=== PATIENT | male | born 1970 | race Caucasian/White ===

== ENCOUNTER 2019-08-27 13:23 | Emergency (ER) | payer BC ==
--- NOTE | 2019-08-27 13:44 | EDM.PDOC ---
ED HPI GENERAL MEDICAL PROBLEM - General Chief Complaint: Abdominal Pain Stated Complaint: ABD PAIN Time Seen by Provider: 08/27/19 13:42 Source of Information: Reports: Patient History Limitations: Reports: No Limitations - History of Present Illness INITIAL COMMENTS - FREE TEXT/NARRATIVE: 48-year-old male who reports onset of "upset stomach" beginning last night after eating supper. He reports he had mild pain at that time that seemed to come and go and he was awakened again at 3 AM with pain in his abdomen that was crampy type pain and this continued to come and go throughout the morning as he was driving to [place] from [place] and over the past 2 hours the pain has been continual with intermittent waves of extreme worsening in his pain. The pain is currently a 7/10 but has been a 10/10. It does not radiate. He has had nausea but no vomiting. He had a small bowel movement today that was nonbloody. He has been urinating normally. He has had no cough. No fevers. No sore throat. There are no other associated signs or symptoms. There are no other modifying factors. 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: Other (see below) (He did take some Pepto-Bismol this morning without relief.) ABDOMEN Pain Score (Numeric/FACES): 8 - Related Data Allergies Allergy/AdvReac Type Severity Reaction Status Date / Time No Known Allergies Allergy Verified 08/27/19 13:43 Home Meds: Home Meds Metoprolol Succinate 25 mg PO DAILY 08/27/19 [History] Spironolactone [Aldactone] 12.5 mg PO DAILY 08/27/19 [History] Topiramate 75 mg PO DAILY 08/27/19 [History] hydroCHLOROthiazide [Hydrochlorothiazide] 25 mg PO DAILY 08/27/19 [History] Past Medical History Cardiovascular History: Reports: Hypertension - Past Surgical History Other Surgical History Comment: No previous surgeries. Social & Family History - Tobacco Use Smoking Status *Q: Unknown Ever Smoked (Nonsmoker) - Alcohol Use Alcohol Use History: Yes Alcohol Use Frequency: Socially - Living Situation & Occupation Occupation: Employed (He works as an electrician helper. He is from the [place] area and is working in [employer]) ED ROS GENERAL - Review of Systems Review Of Systems: See Below Constitutional: Reports: Diaphoresis HEENT: Reports: No Symptoms Respiratory: Reports: No Symptoms Cardiovascular: Reports: No Symptoms Endocrine: Reports: No Symptoms GI/Abdominal: Reports: Abdominal Pain, Nausea : Reports: No Symptoms Musculoskeletal: Reports: No Symptoms Skin: Reports: Diaphoresis Neurological: Reports: No Symptoms Hematologic/Lymphatic: Reports: No Symptoms Immunologic: Reports: No Symptoms ED EXAM, GI/ABD - Physical Exam Exam: See Below Exam Limited By: No Limitations General Appearance: Alert, WD/WN, Moderate Distress Eyes: Bilateral: Normal Appearance, EOMI Ears: Normal External Exam, Hearing Grossly Normal Nose: Normal Inspection, Normal Mucosa, No Blood Throat/Mouth: Normal Inspection, Normal Oropharynx, Normal Voice, No Airway Compromise Head: Atraumatic, Normocephalic Neck: Normal Inspection, Supple, Non-Tender, Full Range of Motion Respiratory/Chest: No Respiratory Distress, Lungs Clear, Normal Breath Sounds, No Accessory Muscle Use, Chest Non-Tender Cardiovascular: Normal Peripheral Pulses, Regular Rate, Rhythm, No Murmur GI/Abdominal Exam: Normal Bowel Sounds, Soft, No Mass, Pelvis Stable, Tender ( In epigastrium and right upper quadrant) (Male) Exam: No Hernia Back Exam: Normal Inspection, Full Range of Motion Extremities: Normal Inspection, Normal Range of Motion, Non-Tender, No Pedal Edema, Normal Capillary Refill Neurological: Alert, Oriented, CN II-XII Intact, Normal Cognition, No Motor/ Sensory Deficits Psychiatric: Normal Affect Skin Exam: Warm, Dry, Intact, Normal Color, No Rash Course - Vital Signs Last Recorded V/S: Last Vital Signs Temp 34.9 C L 08/27/19 13:30 Pulse 58 L 08/27/19 16:45 Resp 18 08/27/19 16:45 BP 166/99 H 08/27/19 16:45 Pulse Ox 100 08/27/19 16:45 - Orders/Labs/Meds Orders: Active Orders 24 hr Category Date Time Status Sodium Chloride 0.9% [Normal Saline] 1,000 ml Med 08/27/19 14:00 Active IV ASDIRECTED Sodium Chloride 0.9% [Saline Flush] Med 08/27/19 13:54 Active 10 ml FLUSH ASDIRECTED PRN NG [Nasogastric Orogastric Tube Insertion] [OM.PC] Ot 08/27/19 16:59 Ordered Routine Peripheral IV Insertion Adult [OM.PC] Routine Oth 08/27/19 13:54 Ordered Medication Orders Sodium Chloride (Normal Saline) 1,000 mls @ 125 mls/hr IV ASDIRECTED KRISTIN Last Admin: 08/27/19 15:30 Dose: 125 mls/hr Sodium Chloride (Saline Flush) 10 ml FLUSH ASDIRECTED PRN PRN Reason: Keep Vein Open Last Admin: 08/27/19 14:20 Dose: 10 ml Labs: Laboratory Tests 08/27/19 08/27/19 08/27/19 Range/Units 14:00 14:00 14:00 WBC 9.2 (4.5-12.0) X10-3/uL RBC 5.01 (4.30-5.75) x10(6)uL Hgb 15.1 (13.5-17.8) g/dL Hct 45.5 (30.0-51.3) % MCV 90.9 (80-96) fL MCH 30.1 (27.7-33.6) pg MCHC 33.1 (32.2-35.4) g/dL RDW 12.2 (11.5-15.5) % Plt Count 199 (125-369) X10(3)uL MPV 7.1 L (7.4-10.4) fL Add Manual Diff Yes Neutrophils % (Manual) 85 H (46-82) % Lymphocytes % (Manual) 10 L (13-37) % Monocytes % (Manual) 5 (4-12) % Sodium 136 (135-145) mmol/L Potassium 3.6 (3.5-5.3) mmol/L Chloride 100 (100-110) mmol/L Carbon Dioxide 22 (21-32) mmol/L BUN 24 H (7-18) mg/dL Creatinine 0.9 (0.70-1.30) mg/dL Est Cr Clr Drug Dosing 102.52 mL/min Estimated GFR (MDRD) > 60 (>60) BUN/Creatinine Ratio 26.7 H (9-20) Glucose 125 H (80-116) mg/dL Lactic Acid (0.4-2.0) mmol/L Calcium 8.8 (8.6-10.2) mg/dL Total Bilirubin 0.5 (0.1-1.3) mg/dL AST 19 (5-25) IU/L ALT 33 (12-36) U/L Alkaline Phosphatase 59 (56-112) IU/L C-Reactive Protein < 0.2 L (0.5-0.9) mg/dL Total Protein 7.8 (6.0-8.0) g/dL Albumin 4.0 (3.5-5.2) g/dL Globulin 3.8 g/dL Albumin/Globulin Ratio 1.1 Lipase 87 (73-393) U/L Urine Color (YELLOW) Urine Appearance (CLEAR) Urine pH (5.0-6.5) Ur Specific [place] (1.010-1.025) Urine Protein (NEGATIVE) mg/dL Urine Glucose (UA) (NORMAL) mg/dL Urine Ketones (NEGATIVE) mg/dL Urine Occult Blood (NEGATIVE) Urine Nitrite (NEGATIVE) Urine Bilirubin (NEGATIVE) Urine Urobilinogen (NEGATIVE) mg/dL Ur Leukocyte Esterase (NEGATIVE) Urine RBC (0-5) Urine WBC (0-5) Ur Squamous Epith Cells (NS,R,O) Urine Bacteria (NS) 08/27/19 08/27/19 Range/Units 14:00 14:55 WBC (4.5-12.0) X10-3/uL RBC (4.30-5.75) x10(6)uL Hgb (13.5-17.8) g/dL Hct (30.0-51.3) % MCV (80-96) fL MCH (27.7-33.6) pg MCHC (32.2-35.4) g/dL RDW (11.5-15.5) % Plt Count (125-369) X10(3)uL MPV (7.4-10.4) fL Add Manual Diff Neutrophils % (Manual) (46-82) % Lymphocytes % (Manual) (13-37) % Monocytes % (Manual) (4-12) % Sodium (135-145) mmol/L Potassium (3.5-5.3) mmol/L Chloride (100-110) mmol/L Carbon Dioxide (21-32) mmol/L BUN (7-18) mg/dL Creatinine (0.70-1.30) mg/dL Est Cr Clr Drug Dosing mL/min Estimated GFR (MDRD) (>60) BUN/Creatinine Ratio (9-20) Glucose (80-116) mg/dL Lactic Acid 1.0 (0.4-2.0) mmol/L Calcium (8.6-10.2) mg/dL Total Bilirubin (0.1-1.3) mg/dL AST (5-25) IU/L ALT (12-36) U/L Alkaline Phosphatase (56-112) IU/L C-Reactive Protein (0.5-0.9) mg/dL Total Protein (6.0-8.0) g/dL Albumin (3.5-5.2) g/dL Globulin g/dL Albumin/Globulin Ratio Lipase (73-393) U/L Urine Color Yellow (YELLOW) Urine Appearance Clear (CLEAR) Urine pH 5.0 (5.0-6.5) Ur Specific [place] 1.020 (1.010-1.025) Urine Protein Negative (NEGATIVE) mg/dL Urine Glucose (UA) Normal (NORMAL) mg/dL Urine Ketones 150 H (NEGATIVE) mg/dL Urine Occult Blood Moderate H (NEGATIVE) Urine Nitrite Negative (NEGATIVE) Urine Bilirubin Negative (NEGATIVE) Urine Urobilinogen Normal (NEGATIVE) mg/dL Ur Leukocyte Esterase Negative (NEGATIVE) Urine RBC 0-5 (0-5) Urine WBC 0-5 (0-5) Ur Squamous Epith Cells Occasional (NS,R,O) Urine Bacteria Rare H (NS) Meds: Medications Generic Name Dose Route Start Last Admin Trade Name Freq PRN Reason Stop Dose Admin Sodium Chloride 1,000 mls @ 125 mls/hr 08/27/19 14:00 08/27/19 15:30 Normal Saline IV 125 mls/hr ASDIRECTED KRISTIN Administration Sodium Chloride 10 ml 08/27/19 13:54 08/27/19 14:20 Saline Flush FLUSH 10 ml ASDIRECTED PRN Administration Keep Vein Open Discontinued Medications Generic Name Dose Route Start Last Admin Trade Name Freq PRN Reason Stop Dose Admin Hydromorphone HCl 1 mg 08/27/19 13:56 08/27/19 14:30 Dilaudid IVPUSH 08/27/19 13:57 1 mg ONETIME ONE Administration Hydromorphone HCl 1 mg 08/27/19 15:21 08/27/19 15:45 Dilaudid IVPUSH 08/27/19 15:22 1 mg ONETIME ONE Administration Hydromorphone HCl 1 mg 08/27/19 16:52 08/27/19 17:00 Dilaudid IVPUSH 08/27/19 16:53 1 mg ONETIME ONE Administration Sodium Chloride 1,000 mls @ 999 mls/hr 08/27/19 13:56 08/27/19 14:24 Normal Saline IV 08/27/19 14:56 999 mls/hr .BOLUS ONE Administration Iopamidol 100 ml 08/27/19 15:58 08/27/19 16:04 Isovue-370 (76%) IV 08/27/19 15:59 100 ml ONETIME ONE Administration Ondansetron HCl 4 mg 08/27/19 13:56 08/27/19 14:30 Zofran IVPUSH 08/27/19 13:57 4 mg ONETIME ONE Administration - Radiology Interpretation Free Text/Narrative:: CT scan of abdomen and pelvis showed ascites with elevated loops of proximal small bowel with edematous wall with concern for obstruction with ischemic intestines. There is also a markedly distended stomach with fluid/stomach contents. Radiologist also felt that a small bowel intussusception was possible as well. - Re-Assessments/Exams Free Text/Narrative Re-Assessment/Exam: 08/27/19 14:55: Patient with continued severe abdominal pain. I have ordered a CT of his abdomen and pelvis. He has remained vitally stable. 08/27/19 15:15: I have repeated the patient's Dilaudid IV. He was having severe pain and could not even tolerate going over to CT at this point. He still has a normal pulse and is slightly hypertensive. 08/27/19 16:35: CTA of his abdomen and pelvis shows ascites and some concern of obstruction with ischemic gut. I discussed the patient's case with Dr. Valladares and we do not have any general surgical services available at [facility]. He agrees that the patient appears to have an acute surgical abdomen and needs surgical evaluation and probable surgical services. The patient's pain is still quite severe and repeat his Dilaudid and I will call the surgeons at [facility] in [place]. He continues to be vitally stable. I have ordered a lactic acid to be done at this time. 08/27/19 16:50: I have discussed patient's case with Dr. Cabral, general surgeon at [facility] in [place], and he has agreed to accept the patient in transfer. He did suggest placing an NG tube and to continue IV fluid resuscitation. 08/27/19 17:25: NG tube has been placed with only small amount of fluid obtained thus far. He tolerated this well without any complications. He remains vitally stable to this point. His lactic acid was normal. The patient will be transferred via [facility] ambulance service to [facility] in [place] for direct admission. The patient is in agreement with this plan. 08/27/19 17:40: NG tube has had over a liter out now and the patient feels much more comfortable. 08/27/19 17:49: Awaiting EMS transport at this point. The patient is vitally stable. Departure - Departure Time of Disposition: 18:17 Disposition: DC/Tfer to Acute Hospital 02 Condition: Fair (Guarded) Clinical Impression: Acute abdomen, Uncontrolled pain Intestinal obstruction Qualifiers: Intestinal obstruction type: unspecified Intestinal obstruction extent: unspecified extent Qualified Code(s): K56.609 - Unspecified intestinal obstruction, unspecified as to partial versus complete obstruction Abdominal ascites Qualifiers: Ascites type: other type Qualified Code(s): R18.8 - Other ascites - Discharge Information Referrals: PCP,None [Primary Care Provider] - Forms: ED Department Discharge Sepsis Event Note - Focused Exam Vital Signs: Vital Signs Temp Pulse Resp BP Pulse Ox 08/27/19 16:45 58 L 18 166/99 H 100 08/27/19 13:30 34.9 C L 54 L 16 150/89 H 100 Date Exam was Performed: 08/27/19 Time Exam was Performed: 18:18 - My Orders Last 24 Hours: My Active Orders 08/27/19 13:54 Sodium Chloride 0.9% [Saline Flush] 10 ml FLUSH ASDIRECTED PRN Peripheral IV Insertion Adult [OM.PC] Routine 08/27/19 14:00 Sodium Chloride 0.9% [Normal Saline] 1,000 ml IV ASDIRECTED 08/27/19 16:59 NG [Nasogastric Orogastric Tube Insertion] [OM.PC] Routine - Assessment/Plan Last 24 Hours: My Active Orders 08/27/19 13:54 Sodium Chloride 0.9% [Saline Flush] 10 ml FLUSH ASDIRECTED PRN Peripheral IV Insertion Adult [OM.PC] Routine 08/27/19 14:00 Sodium Chloride 0.9% [Normal Saline] 1,000 ml IV ASDIRECTED 08/27/19 16:59 NG [Nasogastric Orogastric Tube Insertion] [OM.PC] Routine
[2019-08-27] MEDS ORDERED: Sodium Chloride 0.9% 10 ML Syringe FLUSH PRN (13:54)
[2019-08-27] MEDS ORDERED: Ondansetron 4 MG/2 ML SDV IVPUSH ONE (13:56)
[2019-08-27] MEDS ORDERED: HYDROmorphone 2 MG/ML SDV IVPUSH ONE ×3 (13:56→16:52)
[2019-08-27] MEDS ORDERED: Sodium Chloride 0.9% 1,000 ML IV ONE (13:56)
[2019-08-27] MEDS ORDERED: Sodium Chloride 0.9% 1,000 ML IV SCH (14:00)
[2019-08-27] MEDS ORDERED: Iopamidol 755 Mg/ML 100 ML Bottle IV ONE (15:58)
--- NOTE | 2019-08-27 17:55 | CT ---
INDICATION: Severe abdominal pain. CT ABDOMEN AND PELVIS WITH CONTRAST: Spiral 3.75 mm axial sections were obtained through the abdomen and pelvis with 97 cc Isovue-370, 100 second delay at 2 cc/second with sagittal and coronal reconstructions 08/27/2019 - no comparisons. Total exam DLP was 785.05 mGy/cm. Lower lung herring and pleural spaces visualized appeared normal. There is marked distension of small bowel loops with air-fluid levels and ascites noted in the mid to right abdomen. There appears to be thickening of the wall of some of the loops of dilated small bowel. An infectious process with peritonitis would be a consideration although regional enteritis would also be a consideration. The loops of small bowel on the left and extending into the pelvis appear to be more normal in size and the appearance of their nevarez. Pelvic ascites is also noted with the pelvis essentially filled with fluid. No definite free air was identified. The stomach appears to be somewhat distended. There is some metallic pattern and other material within the stomach. The liver, gallbladder, heart, and pericardium, adrenal glands, kidneys, spleen, and the pancreas appear normal. No hepatic ductal dilatation was suggested. There is metallic density in what appear to be distal loops of bowel which may represent very redundant sigmoid loops including stool. IMPRESSION: Dilated loops of small bowel with thickened wall versus intussusception and abdominal and pelvic ascites, etiology indeterminate, question process such as regional enteritis versus infection versus mechanically obstructive process. No definite evidence of perforation is noted - no free air is seen. The possibility of a perforation without intraperitoneal air would be a consideration, however. Report was called to Dr. Reyes at 1640 hours. [facility]
== END 2019-08-27 18:10 ==
LOC: FB.ED 13:23
DX: K56.609 Unspecified intestinal obstruction, unspecified as to partial versus complete obstruction (principal); R18.8 Other ascites; I10 Essential (primary) hypertension; Z79.899 Other long term (current) drug therapy
CPT/HCPCS: 36415; 43752; 74177; 80053; 81001; 83605; 83690; 85025; 86140; 96361; 96374; 96375; 96376; 99285-25; J1170; J2405; J7030; Q9967